=== PATIENT | male | born 1980 | race African-American/Black ===

== ENCOUNTER 2016-09-01 17:27 | Emergency (ER) | payer BC ==
[2016-09-01] MEDS ORDERED: NO MEDS (18:22)
== END 2016-09-01 18:55 ==
LOC: EDMED 17:27
DX: R36.9 Urethral discharge, unspecified (principal); F17.210 Nicotine dependence, cigarettes, uncomplicated; Z86.19 Personal history of other infectious and parasitic diseases
CPT/HCPCS: J0696